=== PATIENT | male | born 1985 | race Caucasian/White ===

== ENCOUNTER 2017-09-24 15:12 | Emergency (ER) | payer OTHER ==
[~2017-09-24] VITALS: Ht 172.7 cm; Wt 72.6 kg
[2017-09-24 15:58] LABS: ABSOLUTE NEUTROPHILS 10.5 thou/uL (1.4-8.2); BASOPHILS 0.4 % (0.0-2.0); EOSINOPHILS 0.9 % (0.0-3.0); HEMOGLOBIN 14.2 gm/dL (14.0-18.0); MCH 29.1 pg (26.0-34.0); MCHC 33.7 g/dL (28.0-37.0); MCV 86.3 fL (80.0-100.0); MONOCYTES 10.2 % (1.0-8.0); PLATELET COUNT 285 thou/uL (150-400); POLYS 72.5 % (36.0-66.0); RBC 4.87 mil/uL (4.50-6.00); WBC 14.6 thou/uL (4.0-11.0)
[2017-09-24 16:05] LABS: CALCIUM 9.3 mg/dL (8.5-10.1); CREATININE 0.9 mg/dL (0.7-1.3); POTASSIUM 3.6 mmol/L (3.5-5.1)
[2017-09-24 16:11] LABS: ALBUMIN 4.1 g/dL (3.4-5.0); TOTAL BILIRUBIN 0.8 mg/dL (<0.1-1.0); TOTAL PROTEIN 7.7 g/dL (6.4-8.2)
[2017-09-24] MEDS ORDERED: HYDROCODONE-AP1 EAC6 PO (16:28)
[2017-09-24] MEDS ORDERED: CLEOCIN HCL150 MG PO (16:28)
[2017-09-24 17:45] VITALS: BP 124/78
== END 2017-09-24 17:47 | disposition home or self-care (01) ==
LOC: ER 15:12
PROVIDERS: Physician Assistant
DX: L03.113 Cellulitis of right upper limb (principal); F17.210 Nicotine dependence, cigarettes, uncomplicated